=== PATIENT | male | born 1975 | race Caucasian/White ===

== ENCOUNTER 2017-01-28 14:28 | Emergency (ER) | payer OTHER ==
[~2017-01-28] VITALS: Ht 162.6 cm; Wt 54.4 kg
[~2017-01-28 14:28] MED LIST: ABILIFY 2 MG2 MG; ABILIFY 2 MG2 MG PO; AMOXICILLIN 50500 M1 PO; BACLOFEN 10MG T10 M1; BACLOFEN 10MG T10 M1 PO; BACLOFEN 10MG T10 MG PO; BACTRIM DS TAB1 EACH PO; CEFTIN 250 MG250 MG PO; CELEXA 10 MG TA10 M1; CELEXA 10 MG TA10 M1 PO; CELEXA40 MG PO; CENTRUM TABLET1 TAB PO; CIPROFLOXACIN500 M1 PO; CLARITIN10 MG PO; CLEOCIN HCL300 MG PO; COUMADIN 2.5MG2.5 M1 PO; COUMADIN 5 MG TA5 M1; COUMADIN 5 MG TA5 M1 PO; CRANBERRY CONC500 MG; CRANBERRY CONC500 MG PO; DEPAKOTE ER250 MG PO; DEPAKOTE ER500 MG PO; DEPAKOTE500 MG; DEPAKOTE500 MG PO; DESYREL150 MG PO; DESYREL50 MG; DESYREL50 MG PO; DULCOLAX STOOL100 MG PO; DURAGESIC1 EAC1 TD; FLONASE 0.05%50 MCG NS; FLOVENT DISKUS50 MCG; FLOVENT DISKUS50 MCG NS; FOLIC ACID; HYDROCODON-ACE1 EAC7 PO; HYDROCODON-ACE1 EAC8 PO; IBUPROFEN 600600 M1 PO; JANTOVEN6 MG PO; KEPPRA 500 MG500 M1 PO; KEPPRA 500 MG500 M2 PO; LEVAQUIN 500 M500 MG PO; LEXAPRO20 MG PO; LORATIDINE 10 M10 M1; LORATIDINE 10 M10 M1 PO; LORAZEPAM 0.50.5 MG PO; MACROBID 100 M100 M1 PO; MAG DELAY64 MG; MAG DELAY64 MG PO; MULTIVITAMINS; NEURONTIN 300300 M1 PO; NEURONTIN 300M300 M2 PO; NORCO 5-325 TA1 EACH PO; PERCOCET 5-3251 EACH PO; PERCOCET 7.5-31 EACH PO; PHENERGAN PO; PREMIER DRAINA MC; REMERON 30 MG T30 MG PO; SLOW-MAG64 MG PO; THERAPEUTIC-M1 EAC2 PO; TRAZODONE 50 MG50 M1 PO; ZANTAC 150MG T150 M1; ZANTAC 150MG T150 M1 PO; ZOFRAN ODT4 MG PO
[2017-01-28 16:07] VITALS: BP 114/79
== END 2017-01-28 16:07 | disposition home or self-care (01) ==
LOC: ER 14:28
DX: N99.522 Malfunction of incontinent external stoma of urinary tract (principal); F17.210 Nicotine dependence, cigarettes, uncomplicated; Z91.040 Latex allergy status; Z88.8 Allergy status to other drugs, medicaments and biological substances; Z85.89 Personal history of malignant neoplasm of other organs and systems; Y83.9 Surgical procedure, unspecified as the cause of abnormal reaction of the patient, or of later complication, without mention of misadventure at the time of the procedure; Y92.89 Other specified places as the place of occurrence of the external cause

== ENCOUNTER 2018-04-15 11:44 | Emergency (ER) | payer OTHER ==
[~2018-04-15] VITALS: Ht 162.6 cm; Wt 60.8 kg
[2018-04-15 12:11] LABS: URINE BILIRUBIN NEGATIVE (Negative); URINE BLOOD 1+ (Negative); URINE COLOR YELLOW; URINE GLUCOSE-RANDOM* NEGATIVE (Negative); URINE KETONES NEGATIVE (Negative); URINE LEUKOCYTES-REFLEX 3+ (Negative); URINE NITRITE-REFLEX POSITIVE (Negative); URINE PROTEIN (DIPSTICK) 1+ (Negative); URINE SPECIFIC GRAVITY 1.015 (1.005-1.035); URINE UROBILINOGEN 0.2 E.U./dl (0.2-1.0)
[2018-04-15 12:12] LABS: URINE CLARITY HAZY
[2018-04-15 12:19] LABS: BACTERIA-REFLEX >30 Many /HPF (None Seen); CASTS None Seen /LPF (None Seen); SQUAMOUS None Seen /LPF (0-3); URINE RBC 0-2 Rare /HPF (0-2)
[2018-04-15 12:20] LABS: CRYSTALS None Seen /LPF (None Seen)
[2018-04-15] MEDS ORDERED: BACTRIM DS TAB1 EACH PO (12:48)
[2018-04-15 15:09] VITALS: BP 140/95
== END 2018-04-15 15:05 | disposition home or self-care (01) ==
LOC: ER 11:44
PROVIDERS: Nurse Practitioner
DX: N39.0 Urinary tract infection, site not specified (principal); F17.210 Nicotine dependence, cigarettes, uncomplicated; Z91.018 Allergy to other foods; Z91.040 Latex allergy status; Z88.6 Allergy status to analgesic agent; Z88.8 Allergy status to other drugs, medicaments and biological substances; Z91.048 Other nonmedicinal substance allergy status

== ENCOUNTER → 2019-07-24 | Outpatient (CLI) | payer BC, OTHER ==
[~2019-07-24] MED LIST changes: +CEFDINIR300 MG PO; +FLAGYL 250 MG250 MG PO; +GENTAMICIN SULF15 GM TOP; -LORATIDINE 10 M10 M1; +REGLAN 10 MG TA10 MG PO
== END ==
LOC: HYPER 12:04
DX: L97.322 Non-pressure chronic ulcer of left ankle with fat layer exposed (principal); L03.116 Cellulitis of left lower limb; S91.302A Unspecified open wound, left foot, initial encounter; S90.822A Blister (nonthermal), left foot, initial encounter; E66.01 Morbid (severe) obesity due to excess calories; R60.0 Localized edema; Q05.9 Spina bifida, unspecified; I89.0 Lymphedema, not elsewhere classified; M62.81 Muscle weakness (generalized); J44.9 Chronic obstructive pulmonary disease, unspecified; K21.9 Gastro-esophageal reflux disease without esophagitis; F17.290 Nicotine dependence, other tobacco product, uncomplicated; F41.9 Anxiety disorder, unspecified; F32.9 Major depressive disorder, single episode, unspecified; Z89.611 Acquired absence of right leg above knee; Z68.20 Body mass index [BMI] 20.0-20.9, adult; Z86.73 Personal history of transient ischemic attack (TIA), and cerebral infarction without residual deficits; X58.XXXA Exposure to other specified factors, initial encounter; Y93.89 Activity, other specified; Y92.89 Other specified places as the place of occurrence of the external cause; Y99.8 Other external cause status

== ENCOUNTER → 2019-08-14 | Outpatient (CLI) | payer BC, OTHER | LOC: HYPER 11:33 | DX: L97.822 Non-pressure chronic ulcer of other part of left lower leg with fat layer exposed (principal); S91.002D Unspecified open wound, left ankle, subsequent encounter; S91.302D Unspecified open wound, left foot, subsequent encounter; L03.116 Cellulitis of left lower limb; I89.0 Lymphedema, not elsewhere classified; Q05.9 Spina bifida, unspecified; M62.81 Muscle weakness (generalized); M86.8X6 Other osteomyelitis, lower leg; J44.9 Chronic obstructive pulmonary disease, unspecified; F41.9 Anxiety disorder, unspecified; F32.9 Major depressive disorder, single episode, unspecified; K21.9 Gastro-esophageal reflux disease without esophagitis; F17.290 Nicotine dependence, other tobacco product, uncomplicated; Z86.73 Personal history of transient ischemic attack (TIA), and cerebral infarction without residual deficits; Z86.14 Personal history of Methicillin resistant Staphylococcus aureus infection; Z89.611 Acquired absence of right leg above knee; X58.XXXD Exposure to other specified factors, subsequent encounter ==

== ENCOUNTER 2019-12-19 14:05 | Emergency (ER) | payer BC, OTHER ==
[~2019-12-19] VITALS: Ht 162.6 cm; Wt 54.9 kg
[2019-12-19 15:06] LABS: ABSOLUTE NEUTROPHILS 7.2 thou/uL (1.4-8.2); BASOPHILS 0.6 % (0.0-2.0); EOSINOPHILS 1.8 % (0.0-3.0); HEMATOCRIT 36.3 % (42.0-52.0); LYMPHOCYTES 25.1 % (24.0-44.0); MCH 26.1 pg (26.0-34.0); MCHC 33.1 g/dL (28.0-37.0); MCV 78.9 fL (80.0-100.0); MONOCYTES 6.3 % (1.0-8.0); PLATELET COUNT 183 thou/uL (150-400); POLYS 66.2 % (36.0-66.0); RDW 19.2 % (10.5-14.5)
[2019-12-19 15:11] LABS: CREATININE 0.6 mg/dL (0.7-1.3); POTASSIUM 3.8 mmol/L (3.5-5.1)
[2019-12-19 15:17] LABS: ALBUMIN 3.4 g/dL (3.4-5.0); TOTAL BILIRUBIN 0.2 mg/dL (0.2-1.0); TOTAL PROTEIN 7.2 g/dL (6.4-8.2)
[2019-12-19 16:58] LABS: URINE BILIRUBIN NEGATIVE (Negative); URINE BLOOD TRACE (Negative); URINE CLARITY CLOUDY; URINE COLOR YELLOW; URINE GLUCOSE-RANDOM* NEGATIVE (Negative); URINE KETONES NEGATIVE (Negative); URINE LEUKOCYTES-REFLEX 2+ (Negative); URINE NITRITE-REFLEX POSITIVE (Negative); URINE PROTEIN (DIPSTICK) TRACE (Negative); URINE SPECIFIC GRAVITY <= 1.005 (1.005-1.035); URINE UROBILINOGEN 0.2 E.U./dl (0.2-1.0)
[2019-12-19 17:05] LABS: AMORPHOUS URATES Moderate /LPF (None Seen); BACTERIA-REFLEX 1-9 Few /HPF (None Seen); CASTS None Seen /LPF (None Seen); SQUAMOUS None Seen /LPF (0-3); URINE RBC 3-10 Few /HPF (0-2); URINE WBC-REFLEX 6-15 Few /HPF (0-5)
[2019-12-19] MEDS ORDERED: KEFLEX500 M1 PO (17:09)
[2019-12-19] MEDS ORDERED: BACTRIM DS TAB1 EACH PO (17:09)
[2019-12-19 18:18] VITALS: BP 95/53
== END 2019-12-19 18:18 | disposition home or self-care (01) ==
LOC: ER 14:05
PROVIDERS: Physician Assistant
DX: N39.0 Urinary tract infection, site not specified (principal); L03.116 Cellulitis of left lower limb; L03.115 Cellulitis of right lower limb; G40.909 Epilepsy, unspecified, not intractable, without status epilepticus; F17.210 Nicotine dependence, cigarettes, uncomplicated; Z91.040 Latex allergy status; Z88.8 Allergy status to other drugs, medicaments and biological substances; Z79.899 Other long term (current) drug therapy

== ENCOUNTER 2020-01-21 13:52 | Emergency (ER) | payer BC, OTHER ==
[~2020-01-21] VITALS: Ht 162.6 cm; Wt 55.3 kg
[~2020-01-21 13:52] MED LIST changes: +KEFLEX500 M1 PO
[2020-01-21 16:14] LABS: EOSINOPHILS 2.9 % (0.0-3.0); HEMATOCRIT 33.7 % (42.0-52.0); HEMOGLOBIN 11.1 gm/dL (14.0-18.0); LYMPHOCYTES 24.9 % (24.0-44.0); MCH 25.5 pg (26.0-34.0); MCHC 32.8 g/dL (28.0-37.0); MCV 77.8 fL (80.0-100.0); MONOCYTES 5.6 % (1.0-8.0); PLATELET COUNT 214 thou/uL (150-400); POLYS 65.6 % (36.0-66.0); RBC 4.34 mil/uL (4.50-6.00); RDW 17.8 % (10.5-14.5); WBC 12.2 thou/uL (4.0-11.0)
[2020-01-21 17:13] LABS: CREATININE 0.5 mg/dL (0.7-1.3); POTASSIUM 3.9 mmol/L (3.5-5.1)
[2020-01-21] MEDS ORDERED: KEFLEX500 M1 PO (17:53)
[2020-01-21 19:03] VITALS: BP 107/56
== END 2020-01-21 19:17 ==
LOC: ER 13:52
PROVIDERS: Emergency Medicine
DX: T83.038A Leakage of other urinary catheter, initial encounter (principal); F17.210 Nicotine dependence, cigarettes, uncomplicated; Z79.899 Other long term (current) drug therapy; Z88.8 Allergy status to other drugs, medicaments and biological substances; Z91.018 Allergy to other foods; Z91.040 Latex allergy status

== ENCOUNTER 2020-11-09 20:59 | Emergency (ER) | payer OTHER ==
[~2020-11-09] VITALS: Ht 162.6 cm; Wt 66.3 kg
[2020-11-09 21:53] LABS: ABSOLUTE NEUTROPHILS 6.6 thou/uL (1.4-8.2); BASOPHILS 0.8 % (0.0-2.0); EOSINOPHILS 3.6 % (0.0-3.0); HEMOGLOBIN 10.5 gm/dL (14.0-18.0); LYMPHOCYTES 24.3 % (24.0-44.0); MCH 27.6 pg (26.0-34.0); MCHC 32.9 g/dL (28.0-37.0); MONOCYTES 6.2 % (1.0-8.0); PLATELET COUNT 270 thou/uL (150-400); POLYS 65.1 % (36.0-66.0); RBC 3.81 mil/uL (4.50-6.00); RDW 19.9 % (10.5-14.5); WBC 10.2 thou/uL (4.0-11.0)
[2020-11-09 22:05] LABS: ANION GAP 11 mmol/L (7-16); BUN 19 mg/dL (7-18); CALCIUM 9.3 mg/dL (8.5-10.1); CHLORIDE 102 mmol/L (98-107); CO2 23 mmol/L (21-32); CREATININE 0.5 mg/dL (0.7-1.3); GLUCOSE 103 mg/dL (74-106); POTASSIUM 3.7 mmol/L (3.5-5.1); SODIUM 136 mmol/L (136-145)
[2020-11-09 22:14] LABS: ALBUMIN 3.1 g/dL (3.4-5.0); LIPASE 253 U/L (73-393); SGOT 11 U/L (15-37); SGPT 22 U/L (16-63); TOTAL BILIRUBIN 0.3 mg/dL (0.2-1.0); TOTAL PROTEIN 7.4 g/dL (6.4-8.2); TROPONIN-I <0.06 ng/mL (<0.06)
[2020-11-09] MEDS ORDERED: METOCLOPRAMIDE10 MG PO (22:42)
[2020-11-09] MEDS ORDERED: LAMOTRIGINE25 MG PO (22:42)
[2020-11-09] MEDS ORDERED: NORTRIPTYLINE H25 M3 PO (22:43)
[2020-11-09] MEDS ORDERED: NEURONTIN 400400 M1 PO (22:43)
[2020-11-09] MEDS ORDERED: NYSTATIN15 G2 TOP (22:44)
[2020-11-09] MEDS ORDERED: ATIVAN0.5 M1 (22:49)
[2020-11-09] MEDS ORDERED: NICODERM CQ1 EAC1 TOP (22:50)
[2020-11-09] MEDS ORDERED: ROXICODONE5 MG PO (22:51)
[2020-11-09] MEDS ORDERED: MYLICON DR40 MG/0.1 PO (22:51)
[2020-11-10 01:45] VITALS: BP 153/81
--- NOTE | 2020-11-10 07:12 | EKG ---
[address] [address] ELECTROCARDIOGRAM REPORT Name: GELLERLELA BAUTISTA Room #: DEP [facility]#: [id number] Admission: 11/09/20 Attend Phys: Discharge: 11/10/20 Date of : 73 Report #: [id number] [facility] ED Test Date: 2020-11-09 Test Time: 21:04:31 Pat Name: LELA GELLER Department: Room: Gender: M Mlt: LUIS GASTON : 1975 Requested By: Hannah Miller Order Number: [id number] MD: John Mao Measurements Intervals Bozman Rate: 97 P: 32 ID: 140 QRS: 32 QRSD: 86 T: 29 QT: 359 QTc: 456 Interpretive Statements Sinus rhythm Baseline wander in lead(s) V2,V4,V5 Compared to ECG 04/16/2013 19:21:56 No significnt change Electronically Signed On 11-10-2020 7:12:42 CDT by John Mao [email or web address] <ELECTRONICALLY SIGNED> By: John Mao MD, [facility] 11/10/20711 03 03 John Mao MD, FACC /EPI
== END 2020-11-10 02:55 | disposition home or self-care (01) ==
LOC: ER 20:59
PROVIDERS: Physician Assistant
DX: R10.13 Epigastric pain (principal); G40.909 Epilepsy, unspecified, not intractable, without status epilepticus; F17.210 Nicotine dependence, cigarettes, uncomplicated; Z91.040 Latex allergy status; Z88.8 Allergy status to other drugs, medicaments and biological substances; Z79.899 Other long term (current) drug therapy